=== PATIENT | female | born 1960 | race Caucasian/White ===

== ENCOUNTER 2019-04-30 11:51 | Day surgery (SDC) | payer OTHER ==
[2019-04-29 08:48] VITALS: BMI 20.9
[~2019-04-30 11:51] MED LIST: BUPIVACAINE HCL/PF (5 MG/ML) 30 ML VIAL IJ ONE
[2019-04-30] MEDS ORDERED: PROPOFOL 20 ML ONE ×2 (14:14)
[2019-04-30] MEDS ORDERED: SUCCINYLCHOLINE CHLORIDE 200 MG/10 ML SYRINGE ONE (14:14)
[2019-04-30] MEDS ORDERED: ROCURONIUM BROMIDE 50 MG/5 ML SYRINGE ONE (14:14)
[2019-04-30] MEDS ORDERED: MIDAZOLAM HCL 2 MG/2 ML SINGLE DOSE VIAL ONE (14:15)
--- NOTE | 2019-04-30 14:34 | HP ---
Admitting History and Physical - Admission Chief Complaint: Pelvic pain / Right Ovarian cyst History of Present Illness: 58 yo Para 4, postmenopausal is pre op for Laparoscopic right ovarian cystectomy. History Source: Patient Limitations to Obtaining History: No Limitations - Past Medical History ...LMP Comment: 5 yrs ago ...: No ...Para: 4 - Past Surgical History Additional Past Surgical History: Parathyroidectomy - Smoking History Smoking history: Current every day smoker Have you smoked in the past 12 months: Yes Aproximately how many cigarettes per day: 5 - Alcohol/Substance Use Hx Alcohol Use: No History of Substance Use: reports: None - Social History History of Recent Travel: No Home Medications - Allergies Allergies/Adverse Reactions: Allergies Allergy/AdvReac Type Severity Reaction Status Date / Time Penicillins Allergy Intermediate Itching Verified 04/30/19 12:32 - Home Medications Home Medications: Ambulatory Orders Alendronate Sodium [Binosto] 70 mg PO WEEKLY 04/29/19 Cyanocobalamin Vit B-12 Inj. [Redisol] 1,000 mcg IJ MONTHLY 04/29/19 Ibuprofen 400 mg PO PRN 04/29/19 Oxybutynin Chloride 5 mg PO DAILY 04/29/19 Pravastatin Sodium [Pravachol (Nf)] 40 mg PO HS 04/29/19 Family Disease History - Family Disease History Family History: Unremarkable Review of Systems - Review of Systems Constitutional: reports: No Symptoms Eyes: reports: No Symptoms HENT: reports: No Symptoms Neck: reports: No Symptoms Cardiovascular: reports: No Symptoms Respiratory: reports: No Symptoms Gastrointestinal: reports: No Symptoms Genitourinary: reports: Pain Breasts: reports: No Symptoms Reported Musculoskeletal: reports: No Symptoms Integumentary: reports: No Symptoms Neurological: reports: No Symptoms Endocrine: reports: No Symptoms Hematology/Lymphatic: reports: No Symptoms Psychiatric: reports: No Symptoms Physical Examination Vital Signs: Vital Signs Temperature 97.7 F 04/30/19 12:35 Pulse Rate 67 04/30/19 12:35 Respiratory Rate 16 04/30/19 12:35 Blood Pressure 119/79 04/30/19 12:35 O2 Sat by Pulse Oximetry (%) 95 04/30/19 12:35 Constitutional: Yes: Well Nourished Eyes: Yes: Conjunctiva Clear HENT: Yes: Atraumatic Neck: Yes: Supple Cardiovascular: Yes: Regular Rate and Rhythm Respiratory: Yes: Regular Gastrointestinal: Yes: Normal Bowel Sounds Renal/: Yes: WNL Breast(s): Yes: WNL Musculoskeletal: Yes: WNL Extremities: Yes: WNL Integumentary: Yes: WNL Neurological: Yes: Alert, Oriented Problem List - Problems (1) Right ovarian cyst Code(s): N83.201 - UNSPECIFIED OVARIAN CYST, RIGHT SIDE Assessment/Plan Right ovarian cyst Pre op for Laparoscopic ovarian cystectomy Consent signed Anesthesia to see patient
[2019-04-30] MEDS ORDERED: LABETALOL HCL 5 MG/1 ML (100MG/20 ML VIAL) ONE (15:20)
[2019-04-30] MEDS ORDERED: NEOSTIGMINE METHYLSULFATE 0.5 MG/1 ML - 10 ML MDV ONE (15:49)
[2019-04-30] MEDS ORDERED: ONDANSETRON 4 MG/2 ML VIAL IVPUSH PRN (15:58)
[2019-04-30] MEDS ORDERED: oxyCODONE HCL 5 MG TABLET PO PRN (15:58)
[2019-04-30] MEDS ORDERED: LACTATED RINGERS SOLUTION 1,000 ML IV SCH (16:00)
--- NOTE | 2019-04-30 16:00 | OP ---
Operative Note - Note: Operative Date: 04/30/19 Pre-Operative Diagnosis: Right ovarian cyst Operation: Laparoscopic right ovarian cystectomy Findings: 10cm right ovarian cyst Post-Operative Diagnosis: Same as Pre-op Surgeon: Giana Palafox Store Receiving Clerk: Rohith Cohen Anesthesia: General Estimated Blood Loss (mls): 5
--- NOTE | 2019-04-30 16:32 | SURG ---
Surgery Stock Letterer Note Stock Letterer: Rohith Cohen PA-C Date of Service: 04/30/19 Diagnosis: Right ovarian cyst Procedure: Laparoscopic right ovarian cystectomy I was present for the entirety of the operative procedure. For further detail, please refer to operative report. Visit type - Case Type Case Type: Scheduled - Emergency Emergency Visit: No - New patient This patient is new to me today: Yes Date on this admission: 04/30/19 - Critical Care Critical Care patient: No
[2019-04-30 19:30] VITALS: BP 135/79; PULSE 97; TEMP 98
--- NOTE | 2019-05-05 19:57 | PATH ---
Cytology Non-Gynecological Report Patient Name: ALEXANDER KAM Med. Rec. #: [id number] /Age/Gender: 1960 (Age: 58) / F Account: [id number] Location: [facility] SUR[facility]ICAL Taken: 04/30/2019 Received: 05/01/2019 Reported: 05/05/2019 Physicians: Giana Palafox M.D. Specimen(s) Received RIGHT OVARIAN CYST FLUID Clinical History Right ovarian cyst Final Diagnosis OVARIAN CYST FLUID, RIGHT, FOR CYTOLOGY: SATISFACTORY FOR EVALUATION. NEGATIVE FOR MALIGNANT CELLS. CYSTIC LESION WITH RARE MACROPHAGES AND DEGENERATED CELLS IN A BACKGROUND OF SCANT PROTEINACEOUS MATERIAL. Comment: See concurrent material ([id number]). Electronically Signed Le Vasquez M.D. Gross Description Approximately 50 cc of yellow fluid received fresh. One cytofunnel prepared and Pap stained.
--- NOTE | 2019-05-05 20:04 | PATH ---
Surgical Pathology Report Patient Name: ALEXANDER KAM [facility]. Rec. #: [id number] /Age/Gender: 1960 (Age: 58) / F Account: [id number] Location: [facility] SURGICAL Taken: 04/30/2019 Received: 05/01/2019 Reported: 05/05/2019 Physicians: Giana Palafox M.D. Specimen(s) Received RIGHT OVARIAN CYST WALL Clinical History Right ovarian cyst Final Diagnosis OVARIAN CYST WALL, RIGHT, EXCISION: FRAGMENTS OF BENIGN OVARIAN TISSUE AND RARE STRIPS OF SMALL CUBOIDAL EPITHELIUM SUGGESTIVE OF BENIGN CYST WALL. Comment: Small cuboidal epithelium is suggestive of a benign cyst wall wherein a serous cystadenoma is a consideration. Suggest clinical correlation. See concurrent cytology ([id number]). Electronically Signed Le Vasquez M.D. Gross Description Received in formalin labeled "right ovarian cyst," is a 1.3 x 0.7 x 0.2 cm aggregate of walter-arriaza soft tissue fragments, possibly consistent with a disrupted cyst. The specimen is submitted in toto in one cassette. /05/04/2019 [facility]05/04/2019
--- NOTE | 2019-05-06 09:46 | OP ---
DATE OF OPERATION: 04/30/2019 PREOPERATIVE DIAGNOSIS: Right ovarian cyst. POSTOPERATIVE DIAGNOSIS: Right ovarian cyst. PROCEDURE: Laparoscopic right ovarian cystectomy. SURGEON: Giana Palafox MD ANESTHESIA: General. COMPLICATIONS: None. ESTIMATED BLOOD LOSS: Less than 5 mL. DESCRIPTION OF PROCEDURE: Patient was taken to the operating room, where general anesthesia was administered. Patient was then placed in lithotomy position. She was then prepped and draped in appropriate sterile fashion. A speculum was placed in the patients vagina. The anterior lip of the cervix was grasped with a single-tooth tenaculum. Then, due to cervical stenosis, the HUMI uterine manipulator could not be advanced into the uterus. So, a sponge-stick was placed in the vagina as a means to manipulate the uterus. The speculum was removed from the vagina, and Benson catheter was then inserted. Attention was then turned to the patients abdomen, where a 5-mm skin incision was made in the umbilical fold. The Veress needle was carefully introduced into the peritoneal cavity at a 45-degree angle while tenting the abdominal wall. Intraperitoneal placement was confirmed by use of the water-filled syringe and dropping intraabdominal pressure with insufflation of CO2 gas. The trocar and sleeve were then advanced without difficulty into the abdomen where intraabdominal placement was confirmed by the laparoscope. Pneumoperitoneum was obtained with 3 L of CO2 gas, and the 5-mm trocar and sleeve were then advanced without difficulty into the abdomen, where intraabdominal placement was confirmed by the laparoscope. Then, 2nd and 3rd skin incisions were made 2 cm above the pubic symphysis and 5 cm away from the midline on both sides. The 2nd and 3rd trocar and sleeve were then advanced under direct visualization. A survey of the patients pelvis and abdomen revealed a right ovarian cyst approximately 7-10 cm. Then, a needle aspirator was used to aspirate the fluid from the cyst. Then, the ovarian cyst was collapsed, and the 2 graspers were used to open the cyst. Then, using the grasper, the cyst wall was detached from the ovary, and hemostasis was assured using the bipolar attached to a spatula. The pelvis was then completely irrigated. Surgicel was placed over the ovaries, and hemostasis was assured. Then, the instruments were removed, and the patient was taken out of lithotomy position, Benson catheter was removed as well as the sponge-stick was, and the patient was taken to PACU in stable condition. PATHOLOGY: Ovarian cyst wall. GIANA PALAFOX M.D. MARKELL/[id number]
== END 2019-04-30 18:30 | disposition home or self-care (01) ==
LOC: JASU-SURG 11:51 → EDSTATUS 14:30 → JASU-SURG 18:30
PROVIDERS: ATTEND Obstetrics & Gynecology
PROC: 0UB04ZZ Excision of Right Ovary, Percutaneous Endoscopic Approach (ICD-10-PCS; principal; 2019-04-30 14:30)
DX: N83.201 Unspecified ovarian cyst, right side (principal)
CPT/HCPCS: 86850; 86900; 86901; 88108; 88304-TC; 94760